=== PATIENT | male | born 1975 | race Caucasian/White ===

== ENCOUNTER 2020-11-09 06:07 | Day surgery (SDC) | payer BC ==
[2020-11-02 14:35] LABS: BASOPHILS % (AUTO) 0.2 % (0-1); EOSINOPHILS % (AUTO) 0.1 % (0-6); LYMPHOCYTES # (AUTO) 1.7 X10'3 (1.1-4.8); LYMPHOCYTES % (AUTO) 11.2 % (21-51); MEAN CORPUSCULAR HEMOGLOBIN 31.2 PG (27.0-31.0); MEAN CORPUSCULAR HGB CONC 33.7 g/dL (33.0-36.5); MEAN CORPUSCULAR VOLUME 92.4 FL (78-98); MEAN PLATELET VOLUME 7.8 FL (7.4-10.4); MONOCYTES # (AUTO) 0.8 X10'3 (0-0.9); MONOCYTES % (AUTO) 4.9 % (2-12); NEUTROPHILS # (AUTO) 12.9 X10'3 (1.8-7.7); NEUTROPHILS % (AUTO) 83.6 % (42-75); PRE OP HEMATOCRIT 50.7 % (42.0-52.0); PRE OP HEMOGLOBIN 17.1 g/dL (14.0-17.9); PRE OP PLATELET COUNT 275 X10'3 (140-440); RED BLOOD COUNT 5.48 X10'6 (4.70-6.10)
[2020-11-02 14:48] LABS: PRE OP PROTIME 10.1 SECONDS (9.0-12.0)
[2020-11-02 14:51] LABS: ALBUMIN 4.5 G/DL (3.4-5.0); ALBUMIN/GLOBULIN RATIO 1.1 (1.1-1.5); ALKALINE PHOSPHATASE 78 IU/L (46-116); BLOOD UREA NITROGEN 17 MG/DL (7-18); BUN/CREATININE RATIO 17.7 (5.4-32.0); CALCIUM 9.8 MG/DL (8.5-10.1); CHLORIDE 101 MMOL/L (99-107); CREATININE 0.96 MG/DL (0.60-1.10); PRE OP ALT 53 U/L (30-65); PRE OP ANION GAP 8 (8-16); PRE OP AST 20 U/L (10-37); PRE OP BILIRUB, TOTAL 1.6 MG/DL (0.0-1.0); PRE OP GLUCOSE 124 MG/DL (70-104); PRE OP SODIUM 138 MMOL/L (135-145); TOTAL PROTEIN 8.6 G/DL (6.4-8.2); eGFR 84 ML/MIN
[~2020-11-09] VITALS: Ht 175.3 cm; Wt 92.9 kg
[2020-11-09] VITALS (17 sets, daily range): BP systolic 145–182; BP diastolic 89–110
[~2020-11-09 06:07] MED LIST: PRED10TA PO; famotidine 20mg tablet PO ONE; oxymetazoline 15 ML nasal spray NS PRN; ringers solution, lacted 1,000 ML IV SCH
[2020-11-09] MEDS ORDERED: cocaine 4% topical solution 4ml bottle ONE (06:54)
[2020-11-09] MEDS ORDERED: LIDOcaine 1% W/epiNEPHrine 1:100,000 20ml vial ONE ×2 (06:54→07:15)
[2020-11-09] MEDS ORDERED: oxymetazoline 15 ML nasal spray NS ONE ×2 (06:55→07:08)
[2020-11-09] MEDS ORDERED: mupirocin 2% ointment 22GM ONE ×2 (06:55→07:07)
[2020-11-09] MEDS ORDERED: cefTAZidime 1gm inj ONE (07:09)
[2020-11-09] MEDS ORDERED: methylPREDNISolone acetate 80mg/ml inj**IM only ONE (07:40)
[2020-11-09] MEDS ORDERED: midazolam 1 mg/ML 2ml injection ONE (07:56)
[2020-11-09] MEDS ORDERED: fentaNYL/PF 50MCG/1 ML 2ML syringe ONE ×2 (07:56→08:29)
[2020-11-09] MEDS ORDERED: hydrocortisone sod succ/PF 100mg/2ml inj. ONE (08:33)
[2020-11-09] MEDS ORDERED: morphine 2 MG/ML inj. syringe IV PRN (08:50)
[2020-11-09] MEDS ORDERED: labetalol 20mg/4ml (5mg/ml) syringe IV PRN (08:50)
[2020-11-09] MEDS ORDERED: morphine 4 MG/ML inj SYRINge IV PRN (08:50)
[2020-11-09] MEDS ORDERED: ringers solution, lacted 1,000 ML IV SCH (08:50)
[2020-11-09] MEDS ORDERED: meperidine/PF 25mg/ml syringe IV PRN ×3 (08:50)
[2020-11-09] MEDS ORDERED: ondansetron/PF 4mg/2ml inj IV PRN (08:50)
[2020-11-09] MEDS ORDERED: ondansetron/PF 4mg/2ml inj ONE (09:00)
[2020-11-09] MEDS ORDERED: LIDOcaine 2% (20mg/ml) 5ml vial ONE (09:00)
[2020-11-09] MEDS ORDERED: propofol inj 20 ML IV ONE (09:00)
[2020-11-09] MEDS ORDERED: glycopyrrolate 0.2mg/ml inj ONE (09:00)
[2020-11-09] MEDS ORDERED: meperidine/PF 25mg/ml syringe ONE (09:37)
--- NOTE | 2020-11-09 10:37 | NUR ---
Received from OR via [facility], accompanied by Anesthesiologist DR RIOS and report given by Anesthesiologist. PT DROWSY, PAINFUL, BILAT NARES W/COTTONOIDS IN PLACE. BP ELEVATED AND MEDICATION GIVEN BY DR RIOS.
[2020-11-09] MEDS ORDERED: labetalol 20mg/4ml (5mg/ml) syringe IV ONE (10:52)
[2020-11-09] MEDS ORDERED: mupirocin 2% nasal ointment 1gm UD NS SCH (10:52)
[2020-11-09] MEDS ORDERED: salt irrigation nasal spray 45 ML SPRAY NS PRN (10:55)
[2020-11-09] MEDS ORDERED: oxymetazoline 15 ML nasal spray NS PRN (10:55)
[2020-11-09] MEDS: hydrALAZINE 20mg/ml inj. IV PRN ×2 (11:02→11:42)
--- NOTE | 2020-11-09 13:07 | NUR ---
PT UP AND ABLE TO AMBULATE SAFELY, VOIDED X 2. BP IMPROVED, BILAT COTTONOIDS REMOVED, MINIMAL BLEEDING NOTED. EV FOOTE APPLIED. D/C INSTRUCTIONS GIVEN AND GONE OVER W/PT AND PTS WHO VERBALIZED UNDERSTANDING. PT D/CD TO HOME VIA W/C W/O INCIDENT. Addendum: 11/09/20 at 1329 by Leigh Boo RN Amended: Links added.
== END 2020-11-09 13:07 | disposition home or self-care (01) ==
LOC: PAS 06:07
PROVIDERS: ATTEND Otolaryngology
DX: J34.2 Deviated nasal septum (principal); J34.3 Hypertrophy of nasal turbinates; J32.8 Other chronic sinusitis; J33.8 Other polyp of sinus; G47.33 Obstructive sleep apnea (adult) (pediatric); Z20.822 Contact with and (suspected) exposure to COVID-19; Z98.890 Other specified postprocedural states; Z72.89 Other problems related to lifestyle; Z79.899 Other long term (current) drug therapy; Z79.01 Long term (current) use of anticoagulants
CPT/HCPCS: 30140; 30520; 31253; 31259; 31267; 36415; 61782; 80053; 82948; 85025; 85576; 85610; 85730; 87426; 93005; A6402; C9250; J0360; J0713; J1040; J1720; J2001; J2175; J2250; J2270; J2405; J2704; J3010; J7040; J7120; U0003; U0005; A4618; A7000; J3490